=== PATIENT | female | born 1990 | race Caucasian/White ===

== ENCOUNTER 2021-09-05 00:06 | Emergency (ER) ==
[~2021-09-05] VITALS: Ht 172.7 cm; Wt 77.3 kg
== END 2021-09-05 02:32 | disposition left against medical advice (07) ==
LOC: M ED 00:06
DX: Z53.21 Procedure and treatment not carried out due to patient leaving prior to being seen by health care provider (principal)

== ENCOUNTER 2022-02-08 12:10 | Emergency (ER) | payer OTHER ==
[~2022-02-08] VITALS: Ht 172.7 cm; Wt 77.3 kg
[2022-02-08] MEDS ORDERED: ONDANSETRON 4MG/2ML VIAL IV ONE (15:05)
[2022-02-08 16:17] LABS: BASO % 0.3 % (0.0-1.0); EOS # 0.1 10^3/uL (0.0-0.5); EOS % 1.5 % (0.0-3.0); HEMATOCRIT 30.1 % (36.0-47.0); HEMOGLOBIN 8.8 g/dl (12.0-15.5); LYMPH # 1.3 10^3/uL (1.5-5.0); MEAN CORPUSCULAR HEMOGLOBIN 20.1 pg (27.0-33.0); MEAN CORPUSCULAR HGB CONC 29.2 g/dl (32.0-36.5); MEAN CORPUSCULAR VOLUME 68.9 fl (80.0-96.0); MONO # 0.4 10^3/uL (0.0-0.8); MONO % 6.6 % (2.0-8.0); NEUTROPHILS # 4.3 10^3/uL (1.5-8.5); NEUTROPHILS % 70.3 % (36.0-66.0); PLATELET COUNT, AUTOMATED 214 10^3/uL (150-450); RED BLOOD COUNT 4.37 10^6/uL (4.00-5.40); WHITE BLOOD COUNT 6.1 10^3/uL (4.0-10.0)
[2022-02-08] MEDS: MORPHINE 4 MG/ML 1ML VIAL/SYRINGE (J2270) IV PRN ×2 (16:18→17:08)
[2022-02-08] MEDS ORDERED: ISOVUE-370 76% 100ML VIAL As Ordered ONE (16:38)
[2022-02-08] MEDS ORDERED: OXYC1TAB23 PO (18:10)
[2022-02-08 18:38] VITALS: BP 114/56
== END 2022-02-08 18:39 | disposition home or self-care (01) ==
LOC: M ED 12:10
DX: R09.1 Pleurisy (principal); Z98.84 Bariatric surgery status; Z88.2 Allergy status to sulfonamides
CPT/HCPCS: 71045; 71275; 74177; 80047; 84484; 84702; 85025; 93005; 93041; 94760; 96374; 96375; 99285; J2270; J2405; Q9967

== ENCOUNTER 2022-09-21 07:30 | Outpatient (CLI) | payer OTHER ==
[2022-09-21 07:30] VITALS: BP 121/59
[~2022-09-21 07:30] MED LIST: ACETAMINOPHEN TAB 650MG DOSE (2X325MG) PO ONE; ALBUTEROL SULFATE 2.5 MG/0.5 ML INH NEB SOLN INH PRN; EPINEPHrine INJ 1 MG/ML 1ML AMP IM PRN; IRON SUCROSE 200 MG in NS 100 ML OVER 1 HR IV ONE; NS 1,000 ML IV ONE; OXYC1TAB23 PO; diphenhydrAMINE 50MG/ML VIAL (J1200) IV PRN; methylPREDNISolone 125MG 2ML VIAL IV PRN
[2022-09-21 08:45] VITALS: BP 125/59
== END 2022-09-21 08:50 | disposition home or self-care (01) ==
LOC: M INFU 07:30
PROVIDERS: ATTEND Student in an Organized Health Care Education/Training Program
DX: D50.9 Iron deficiency anemia, unspecified (principal); Z88.2 Allergy status to sulfonamides
CPT/HCPCS: 96365; J1756

== ENCOUNTER 2022-09-28 08:05 | Outpatient (CLI) | payer OTHER ==
[~2022-09-28] VITALS: Ht 175.3 cm; Wt 77.9 kg
[~2022-09-28 08:05] MED LIST changes: +ACETAMINOPHEN 500 MG TAB PO ONE; -NS 1,000 ML IV ONE; +NS 1,000 ML IV SCH
[2022-09-28 08:14] VITALS: BP 118/57
[2022-09-28 09:40] VITALS: BP 114/61
== END 2022-09-28 09:30 ==
LOC: M INFU 08:05
PROVIDERS: ATTEND Student in an Organized Health Care Education/Training Program
DX: D50.9 Iron deficiency anemia, unspecified (principal); Z88.2 Allergy status to sulfonamides; Z88.8 Allergy status to other drugs, medicaments and biological substances
CPT/HCPCS: 96365; J1756

== ENCOUNTER 2022-10-05 07:20 | Outpatient (CLI) | payer OTHER ==
[~2022-10-05] VITALS: Ht 175.3 cm; Wt 77.9 kg
[~2022-10-05 07:20] MED LIST changes: -ACETAMINOPHEN 500 MG TAB PO ONE; -ACETAMINOPHEN TAB 650MG DOSE (2X325MG) PO ONE; -IRON SUCROSE 200 MG in NS 100 ML OVER 1 HR IV ONE; -NS 1,000 ML IV SCH; -diphenhydrAMINE 50MG/ML VIAL (J1200) IV PRN; +diphenhydrAMINE 50MG/ML VIAL IV PRN
[2022-10-05 07:26] VITALS: BP 106/65
[2022-10-05] MEDS ORDERED: ACETAMINOPHEN TAB 650MG DOSE (2X325MG) PO ONE (07:30)
[2022-10-05] MEDS ORDERED: IRON SUCROSE 200 MG in NS 100 ML OVER 1 HR IV ONE (07:30)
[2022-10-05] MEDS ORDERED: NS 1,000 ML IV SCH (07:30)
[2022-10-05 08:46] VITALS: BP 127/57
== END 2022-10-05 08:45 | disposition home or self-care (01) ==
LOC: M INFU 07:20
PROVIDERS: ATTEND Student in an Organized Health Care Education/Training Program
DX: D50.9 Iron deficiency anemia, unspecified (principal); Z88.2 Allergy status to sulfonamides; Z88.8 Allergy status to other drugs, medicaments and biological substances
CPT/HCPCS: 96365; J1756

== ENCOUNTER 2022-10-18 08:00 | Outpatient (CLI) | payer OTHER ==
[~2022-10-18] VITALS: Ht 172.7 cm; Wt 77.9 kg
[2022-10-18 08:00] VITALS: BP 123/68
[~2022-10-18 08:00] MED LIST changes: +ACETAMINOPHEN 650MG PO PRIOR TO INFUSION PO ONE; +IRON SUCROSE 200 MG in NS 100 ML OVER 1 HR IV ONE; +NS 1,000 ML IV SCH
[2022-10-18 09:30] VITALS: BP 130/74
== END 2022-10-18 09:30 | disposition home or self-care (01) ==
LOC: M INFU 08:00
PROVIDERS: ATTEND Student in an Organized Health Care Education/Training Program
DX: D50.0 Iron deficiency anemia secondary to blood loss (chronic) (principal); Z88.2 Allergy status to sulfonamides; Z88.8 Allergy status to other drugs, medicaments and biological substances
CPT/HCPCS: 96365; J1756

== ENCOUNTER → 2022-10-23 | Outpatient (REF) | payer OTHER ==
[~2022-10-23] MED LIST changes: -ACETAMINOPHEN 650MG PO PRIOR TO INFUSION PO ONE; -ALBUTEROL SULFATE 2.5 MG/0.5 ML INH NEB SOLN INH PRN; -EPINEPHrine INJ 1 MG/ML 1ML AMP IM PRN; -IRON SUCROSE 200 MG in NS 100 ML OVER 1 HR IV ONE; -NS 1,000 ML IV SCH; -diphenhydrAMINE 50MG/ML VIAL IV PRN; -methylPREDNISolone 125MG 2ML VIAL IV PRN
== END ==
LOC: M WUC 19:21
PROVIDERS: ATTEND Student in an Organized Health Care Education/Training Program
DX: R30.0 Dysuria (principal)

== ENCOUNTER 2022-10-25 08:40 | Outpatient (CLI) | payer OTHER ==
[~2022-10-25] VITALS: Ht 175 cm; Wt 77.9 kg
[2022-10-25 08:40] VITALS: BP 124/62
[~2022-10-25 08:40] MED LIST changes: +ACETAMINOPHEN TAB 650MG DOSE (2X325MG) PO ONE; +ALBUTEROL SULFATE 2.5 MG/0.5 ML INH NEB SOLN INH PRN; +EPINEPHrine INJ 1 MG/ML 1ML AMP IM PRN; +IRON SUCROSE 200 MG in NS 100 ML OVER 1 HR IV ONE; +NS 1,000 ML IV SCH; +diphenhydrAMINE 50MG/ML VIAL IV PRN; +methylPREDNISolone 125MG 2ML VIAL IV PRN
[2022-10-25 10:30] VITALS: BP 112/58
== END 2022-10-25 10:30 | disposition home or self-care (01) ==
LOC: M INFU 08:40
PROVIDERS: ATTEND Student in an Organized Health Care Education/Training Program
DX: D50.0 Iron deficiency anemia secondary to blood loss (chronic) (principal); Z88.2 Allergy status to sulfonamides; Z88.8 Allergy status to other drugs, medicaments and biological substances
CPT/HCPCS: 96365; J1756

== ENCOUNTER 2023-09-27 11:09 | Emergency (ER) | payer OTHER ==
[~2023-09-27] VITALS: Ht 172.7 cm; Wt 92.9 kg
[~2023-09-27 11:09] MED LIST changes: -ACETAMINOPHEN TAB 650MG DOSE (2X325MG) PO ONE; -ALBUTEROL SULFATE 2.5 MG/0.5 ML INH NEB SOLN INH PRN; -EPINEPHrine INJ 1 MG/ML 1ML AMP IM PRN; -IRON SUCROSE 200 MG in NS 100 ML OVER 1 HR IV ONE; -NS 1,000 ML IV SCH; -diphenhydrAMINE 50MG/ML VIAL IV PRN; -methylPREDNISolone 125MG 2ML VIAL IV PRN
[2023-09-27] MEDS ORDERED: NS 1,000 ML IV ONE (11:20)
[2023-09-27] MEDS ORDERED: VITA100093 (11:36)
[2023-09-27] MEDS ORDERED: MULT1TAB8 PO (11:36)
[2023-09-27] MEDS ORDERED: NITR100C2 (11:36)
[2023-09-27] MEDS ORDERED: HYDR1CRE30 (11:36)
[2023-09-27] MEDS ORDERED: ONDA4TAB6 PO (11:36)
[2023-09-27] MEDS ORDERED: ESCITALOPRAM (11:36)
[2023-09-27] MEDS ORDERED: ACETAMINOPHEN 500 MG TAB PO ONE (12:10)
[2023-09-27 12:45] VITALS: BP 131/65; TEMP 96.6; O2SAT 99
== END 2023-09-27 12:50 | disposition home or self-care (01) ==
LOC: EDBD 11:09 → M ED 11:09
DX: R11.10 Vomiting, unspecified (principal); Z88.2 Allergy status to sulfonamides; Z88.1 Allergy status to other antibiotic agents; Z88.8 Allergy status to other drugs, medicaments and biological substances; Z79.899 Other long term (current) drug therapy